=== PATIENT | male | born 1960 | race African-American/Black ===

== ENCOUNTER 2022-04-21 22:33 | Emergency (ER) | payer OTHER ==
--- OUTSIDE RECORDS SUMMARY | 2022-04-21 22:37 | XMS REPORT | Continuity of Care Document ---
:1960 Author Organization [facility] t Address [address] [place] [address] Care Team Providers Name Role Phone MILAGRO RAO Primary Care Physician Unavailable MILAGRO RAO Attending Clinician Unavailable Fidel BUI, Meche Attending Clinician Milagro Rao MD Attending Clinician Payers Payer Name Policy Type Policy Number Effective Date Expiration Date S ource Problems Condition Condition Condition Status Onset Resolution Last Treating Co mments Source Name Details Category Date Date Treatment Clinician Date Chronic Chronic Disease Active Univers hepatitis hepatitis 4-29 [place] hepatic hepatic 00 Medical coma coma Branch Dyslipidem Dyslipidem Disease Active U nivantionette ia ia 1-12 ity of 00:00: [place] 00 Medical Branch Type 2 Type 2 Disease Active Univers diabetes diabetes 1-12 ity of mellitus mellitus 00:00: [place] without without 00 Medical complicati complicati Br anch on, on, without without long-term long-term current current use of use of insulin insulin Asymptomat Asymptomat Disease Active U nivers ic ic 1-12 ity of hypertensi hypertensi [place] ve [place] ve urgency 00 Me dical Branch Diabetic Diabetic Disease Active Unive rs eye exam eye exam 1-12 ity of 00:00: [place] 00 Medical Branch Gastroesop Gastroesop Disease Active U nivers hageal hageal 1-12 ity of reflux reflux 00:00: [place] disease disease 00 Medical without without Branch esophagiti esophagiti s s Alcohol Alcohol Disease Active Univers use use 1-12 ity of 00:00: [place] 00 Medical Branch Need for Need for Disease Active Unive rs hepatitis hepatitis 1-12 ity of C C 00:00: [place] screening screening 00 [facility] test test Branch Need for Need for Disease Active Unive rs immunizati immunizati 1-12 [place] of on against [place] against [place] influenza influenza 00 [facility] Branch Nicotine Nicotine Disease Active Unive rs dependence dependence 1-12 it y of with with 00:00: [place] current current 00 Medical use use Branch Chest pain Chest pain Disease Active 2020-07 U nivers 2-09 ity of 00:00: [place] 00 Medical Branch Retinal Retinal Disease Active 2019-07 Univers tear, left tear, left 08-20 it y of 00:00: [place] 00 Medical Branch PVD PVD Disease Active 2019-07 Univers (posterior (posterior 08-20 it y of vitreous vitreous 00:00: [place] detachment detachment 00 Me dical ), left ), left Branch Ocular Ocular Disease Active 2019-07 Univers trauma of trauma of 08-20 [place]y of left eye, left eye, 00:[place] subsequent subsequent 00 Me dical encounter encounter Bran ch Vitreous Vitreous Disease Active 2019-07 Unive rs hemorrhage hemorrhage 1-26 it y of of left of left 00:00: [place] eye eye 00 Medical Branch Vitreous Vitreous Disease Active 2019-07 Unive rs floaters floaters 1-26 ity of of left of left 00:00: [place] eye eye 00 Medical Branch Family hx Family hx Disease Active 2018-07 Overview: Univers of colon of colon 18 Formattin ity of cancer cancer 00:00: g of this [place] 00 note Medical might be Branch different from the original. 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 Added automatic ally from request for surgery [id number] Obesity Obesity Disease Active 2017-07 Univers (BMI (BMI 1-12 ity of 30-39.9) 30-39.9) 00:00: [place] 00 Medical Branch Pancreatic Pancreatic Disease Active 2017-07 Overview : Univers mass mass 1-07 Formattin ity of 00:00: g of this [place] 00 note Medical might be Branch different from the original. Added automatic ally from request for surgery [id number] Mass of Mass of Disease Active 2017-07 Univers pancreas pancreas 0-22 ity of 00:00: [place] 00 Medical Branch Benign Benign Disease Active Univers essential essential 9-24 ity of HTN HTN 00:00: [address] Allergies, Adverse Reactions, Alerts Allergy Allergy Status Severity Reaction(s) Onset Inactive Treating Comm ents Source Name Type Date Date Clinician NO KNOWN Drug Active Univers ALLERGIE Class ity of S [facility] Social History Social Habit Start Date Stop Date Quantity Comments Source Cigarettes smoked 2022-03-09 2022-03-09 Univers ity of current (pack per 00:00:00 00:00:00 ) - Reported Branch Cigarette 2022-03-09 2022-03-09 [place] of pack-years 00:00:00 00:00:00 [facility] Tobacco use and 2022-03-09 2022-03-09 Smokeless Universit y of exposure 00:00:00 00:00:00 tobacco non-user [facility] intake 2022-03-09 2022-03-09 0 /d University of 00:00:00 00:00:00 [facility] Tobacco Comment 2022-03-09 2022-03-09 1 pkg/day for 12 Uni versity of 00:00:00 00:00:00 yrs Quit 6 yrs [facility] History of tobacco 2013-10-14 Cigarette Smoker University of use 00:00:00 [facility] Sex Ass[birth year] At [birth year] Universit y of 00:00:00 00:00:00 [facility] Smoking Status Start Date Stop Date Source Ex-smoker 2022-03-09 00:00:00 2022-03-09 00:00:00 [facility] ty of [place] [facility] Medications Ordered Filled Start Stop Current Ordering Indication Dosage Frequency Signature Comments Components Source Medication Medication Date Date Medication? Clinician (SIG) Name Name SUCRALFATE Yes [id number] TAKE 1 Univers 1 gram 9-15 TABLET BY ity of tablet 00:00: MOUTH IN [place] 00 THE Medical MORNING, Branch ONE TABLET ATE NOON AND ONE TABLET IN THE EVENING metoprolol Yes [id number] 50mg Take 1 Univers tartrate 50 8-15 tablet by ity of mg tablet 00:00: mouth in [facility] 00 the Medical morning Branch and 1 tablet in the evening. metFORMIN Yes [id number] 1000mg Take 1 Univers 1,000 mg 8-15 tablet by ity of tablet 00:00: mouth in [place] 00 the Medical morning Branch and 1 tablet in the evening. Take with meals. lisinopriL- Yes [id number] 1{tbl} Take 1 Univers hydrochloro 8-15 tablet by ity of thiazide 00:00: mouth in [place] 20-25 mg 00 the Medical per tablet morning. [facility] h atorvastati Yes [id number] 40mg Take 1 Univers n 40 mg 8-15 tablet by ity of tablet 00:00: mouth at [place] 00 bedtime. Medical Branch aspirin 81 0 Yes [id number] 81mg Take 1 Univers mg chewable 8-15 tablet by ity of tablet 00:00: mouth in [place] 00 the Medical morning. Branch amLODIPine Yes [id number] 5mg Take 1 Univers 5 mg tablet 8-15 tablet by ity of 00:00: mouth in [place] 00 the Medical morning. Branch pantoprazol Yes [id number] 40mg Take 1 Univers e 40 mg EC 8-15 tablet by ity of tablet 00:00: mouth [place] 00 daily Medical before Branch breakfast. sucralfate Yes [id number] 1g Take 1 Univers 1 gram 8-15 tablet by ity of tablet 00:00: mouth in [place] 00 the Medical morning Branch and 1 tablet at noon and 1 tablet in the evening. metoprolol Yes [id number] 50mg Take 1 Univers tartrate 50 8-15 tablet by ity of mg tablet 00:00: mouth in [facility] 00 the Medical morning Branch and 1 tablet in the evening. metFORMIN 2021-0 Yes [id number] 1000mg Take 1 Univers 1,000 mg 8-15 tablet by ity of tablet 00:00: mouth in [place] 00 the Medical morning Branch and 1 tablet in the evening. Take with meals. lisinopriL- 2021-0 Yes [id number] 1{tbl} Take 1 Univers hydrochloro 8-15 tablet by ity of thiazide 00:00: mouth in [place] 20-25 mg 00 the Medical per tablet morning. [facility] atorvastati 2021-0 Yes [id number] 40mg Take 1 Univers n 40 mg 8-15 tablet by ity of tablet 00:00: mouth at [place] [address] bedtime. [facility] Branch aspirin 81 2021-0 Yes [id number] 81mg Take 1 Univers mg chewable 8-15 tablet by ity of tablet 00:00: mouth in [place] 00 the Medical morning. Branch amLODIPine 0 Yes [id number] 5mg Take 1 Univers 5 mg tablet 8-15 tablet by ity of 00:00: mouth in [place] [address] the Medical morning. Branch pantoprazol 0 Yes [id number] 40mg Take 1 Univers e 40 mg EC 8-15 tablet by ity of tablet 00:00: mouth [place] [address] daily Medical before [place] breakfast. sucralfate 2021-0 Yes [id number] 1g Take 1 Univers 1 gram 8-15 tablet by ity of tablet 00:00: mouth in [place] 00 the Medical morning Branch and 1 tablet at noon and 1 tablet in the evening. metoprolol 2021-0 Yes [id number] 50mg Take 1 Univers tartrate 50 8-15 tablet by ity of mg tablet 00:00: mouth in [facility] 00 the Medical morning Branch and 1 tablet in the evening. metFORMIN 2021-0 Yes [id number] 1000mg Take 1 Univers 1,000 mg 8-15 tablet by ity of tablet 00:00: mouth in [place] [address] the [facility] morning Branch and 1 tablet in the evening. Take with meals. lisinopriL- 2021-0 Yes [id number] 1{tbl} Take 1 Univers hydrochloro 8-15 tablet by ity of thiazide 00:00: mouth in [place] 20-25 mg 00 the Medical per tablet morning. Bran h atorvastati Yes [id number] 40mg Take 1 Univers n 40 mg 8-15 tablet by ity of tablet 00:00: mouth at [place] 00 bedtime. Medical Branch aspirin 81 Yes [id number] 81mg Take 1 Univers mg chewable 8-15 tablet by ity of tablet 00:00: mouth in [place] 00 the Medical morning. Branch amLODIPine Yes [id number] 5mg Take 1 Univers 5 mg tablet 8-15 tablet by ity of 00:00: mouth in [place] 00 the Medical morning. Branch pantoprazol Yes [id number] 40mg Take 1 Univers e 40 mg EC 8-15 tablet by ity of tablet 00:00: mouth [place] 00 daily Medical before Branch breakfast. sucralfate 2021- No [id number] 1g Take 1 Univers 1 gram 8-15 09-15 tablet by ity of tablet 00:00: 00:00 mouth in [place] 00 :00 the Medical morning Branch and 1 tablet at noon and 1 tablet in the evening. metroNIDAZO 2021- Yes [id number] 500mg Take 1 Univers LE (FLAGYL) 8-09 03-23 tablet by it y of 500 mg 00:00: 04:59 mouth [place] tablet 00 :00 every 8 Medical (eight) Branch hours for 7 days. metroNIDAZO 2021- Yes [id number] 500mg Take 1 Univers LE (FLAGYL) 8-15 -23 tablet by it y of 500 mg 00:00: 04:59 mouth [place] tablet 00 :00 every 8 Medical (eight) Branch hours for 7 days. pantoprazol 2021- No [id number] 40mg Take 1 Univers e 40 mg EC - 08-15 tablet by ity of tablet 00:00: 00:00 mouth [place] 00 :00 daily Medical before Branch breakfast. atorvastati 2021- No [id number] 40mg Take 1 Univers n 40 mg -23 03-15 tablet by ity of tablet 00:00: 00:00 mouth at [place] 00 :00 bedtime. Medical Branch metoprolol 2021- No [id number] 50mg Take 1 Univers tartrate 50 11-21-15 tablet by it y of mg tablet 00:00: 00:00 [place] 2 [place] 00 :[place] (two) Medical times Branch daily. lisinopriL- 2021- No [id number] 1{tbl} Take 1 Univers hydrochloro 11-21-15 tablet by it y of thiazide 00:00: 00:00 mouth [place] 20-25 mg 00 :00 daily. Medical per tablet Branch aspirin 81 2021- No [id number] 81mg Take 1 Univers mg chewable 11-21-15 tablet by it y of tablet 00:00: 00:00 mouth [place] 00 :00 daily. Medical Branch amLODIPine 2021- No [id number] 5mg Take 1 Univers 5 mg tablet 11-2115 tablet by it y of 00:00: 00:00 mouth [place] 00 :00 daily. Medical Branch metFORMIN 2021- No [id number] 1000mg Take 1 Univers 1,000 mg 11-2115 tablet by ity o f tablet 00:00: 00:00 mouth 2 [place] 00 :00 (two) Medical times Branch daily with meals. Miscellaneo Yes [id number] [address] 08-06 Dispense ity o f Supply Kit 00:00: blood [place] 00 pressure Medical cuff (any Branch brand), take BP at home BID Miscellaneo Yes [id number] [address] 08-06 Dispense ity o f Supply Kit 00:00: blood [place] 00 pressure Medical cuff (any Branch brand), take BP at home BID Miscellaneo Yes [id number] [address] 08-06 Dispense ity o f Supply Kit 00:00: blood [place] 00 pressure Medical cuff (any Branch brand), take BP at home BID Immunizations Ordered Immunization Filled Date Status Comments Sour ce Name Immunization Name SARS-COV-2 COVID-2021-05-20 Completed Unive rsity of MODERNA VACCINE 00:00:00 [facility] SARS-COV-2 COVID-19 2021-05-20 Completed Unive rsity of MODERNA VACCINE 00:00:00 [facility] SARS-COV-2 COVID-19 2021-05-20 Completed Unive rsity of MODERNA 12+ YRS 00:00:00 [place] Med ical VACCINE Branch SARS-COV-2 COVID-19 2020-09-24 Completed Unive rsity of MODERNA VACCINE 00:00:00 [place] Med ical Branch SARS-COV-2 COVID-19 2020-09-24 Completed Unive rsity of MODERNA VACCINE 00:00:00 [place] Med ical Branch SARS-COV-2 COVID-19 2020-09-24 Completed Unive rsity of MODERNA 12+ YRS 00:00:00 [place] Med ical VACCINE Branch SARS-COV-2 COVID-19 2020-08-27 Completed Unive rsity of MODERNA VACCINE 00:00:00 [place] Med ical Branch SARS-COV-2 COVID-19 2020-08-27 Completed Unive rsity of MODERNA VACCINE 00:00:00 [place] Med ical Branch SARS-COV-2 COVID-19 2020-08-27 Completed Unive rsity of MODERNA 12+ YRS 00:00:00 [place] Med ical VACCINE Branch Pneumococcal 13 2018-08-10 Completed Universit y of Conjugate, PCV13 00:00:00 [facility] dical (Prevnar 13) Branch Meningococcal 2018-08-10 Completed University of Oligosaccharide 00:00:00 [place] Med ical (groups A, C, Y and Branc h W-135) conjugate vaccine (MCV4O) Influenza Virus 2018-08-10 Completed Universit y of Vaccine Quad .5 mL IM 00:00:00 Domin[place] as Medical 6+ MO Branch Heamophilus Influenza 2018-08-10 Completed Uni versity of B 00:00:00 [facility] Branch Pneumococcal 13 2018-08-10 Completed Universit y of Conjugate, PCV13 00:00:00 [facility] dical (Prevnar 13) Branch Meningococcal 2018-08-10 Completed University of Oligosaccharide 00:00:00 [place] Med ical (groups A, C, Y and Branc h W-135) conjugate vaccine (MCV4O) Influenza Virus 2018-08-10 Completed Universit y of Vaccine Quad .5 mL IM 00:00:00 [place] as Medical 6+ MO Branch Heamophilus Influenza 2018-08-10 Completed Uni versity of B 00:00:00 [facility] Branch Pneumococcal 13 2018-08-10 Completed Universit y of Conjugate, PCV13 00:00:00 [facility] dical (Prevnar 13) Branch Meningococcal 2018-08-10 Completed [facility] 00:00:00 [place] Med ical (groups A, C, Y and Branc h W-135) conjugate vaccine (MCV4O) Influenza Virus 2018-08-10 Completed Universit y of Vaccine Quad .5 mL IM 00:00:00 [place] Medical 6+ MO Branch Heamophilus Influenza 2018-08-10 Completed Uni versity of B 00:00:00 [facility] Vital Signs Vital Name Observation Time Observation Value Comments Source Systolic blood 2022-03-09 13:42:00 166 mm[Hg] Univer sity of pressure [facility] Diastolic blood 2022-03-09 13:42:00 106 mm[Hg] [facility] [place] [facility] Heart rate 2022-03-09 13:39:00 73 /min [facility] Body temperature 2022-03-09 13:39:00 36.39 [facility] Respiratory rate 2022-03-09 13:39:00 18 [facility] Body height 2022-03-09 13:39:00 170.2 cm [facility] Body weight 2022-03-09 13:39:00 91.309 kg [facility] BMI 2022-03-09 13:39:00 31.53 kg/m2 [facility] Oxygen saturation in 2022-03-09 13:39:00 98 /min [facility] blood by [facility] Pulse oximetry Branch Procedures Procedure Date / Time Performed Performing Clinician Sour e URINALYSIS, 2022-03-09 15:27:00 Milagro Rao [facility] COMPLETE-Q [facility] Encounters Start End Encounter Admission Attending Care Care Encounter Source Date/Time Date/Time Type Type Clinicians Facility Department ID 2022-05-12 2022-05-12 Outpatient R DARRICK RAO [facility] [id number] Univers 10:40:00 10:40:00 MILAGRO islas [facility] 2022-04-09 2022-04-09 Danica Parra ALJAZLYN [id number] Univers 00:00:00 00:00:00 Meche BRITO [id number] ity of [id number] PROF[place] [id number] Tn dical NAL 044 [facility] 2022-03-09 2022-03-09 Office DARRICK Parra [id number] Univers 08:30:00 09:09:19 Visit Meche BRITO [id number] ity of [id number] PROF[place] [id number] Tn dical NAL 044 [facility] 2022-03-09 2022-03-09 Orders JOSE MARTIN Rao [id number] Univers 00:00:00 00:00:00 Only Milagro RIGGINS [id number] it y of [facility] [id number] Dominik as [phone] [address] Results Test Description Test Time Test Comments Results Result Comments Source URINALYSIS, COMPLETE-Q 2022-03-10 04:00:00 Test Item Value Reference Range Interpretation Comme nts COLOR-Q (test code = DARK YELLOW YELLOW 5778-6) APPEARANCE-Q (test CLOUDY CLEAR code = 5767-9) SPECIFIC GRAVITY-Q 1.001-1.03 (test code = 5811-5) PH-Q (test code = 5-8 5803-2) GLUCOSE-Q (test code = NEGATIVE NEGATIVE 93796-6) BILIRUBIN-Q (test code NEGATIVE NEGATIVE = 5770-3) KETONES-Q (test code = NEGATIVE NEGATIVE 2514-8) OCCULT BLOOD-Q (test NEGATIVE NEGATIVE code = 5794-3) PROTEIN-Q (test code = 1+ NEGATIVE 62198-1) NITRITE-Q (test code = NEGATIVE NEGATIVE 5802-4) LEUKOCYTE ESTERASE-Q NEGATIVE NEGATIVE (test code = 5799-2) WBC-Q (test code = NONE SEEN See_Comment [Automat ed message] 5821-4) The system [employer] generated this result transmitted ref erence range: < OR = 5 /HPF. The reference r nino was not used to int erpret this result as normal/abnormal . RBC-Q (test code = 0-2 See_Comment [Automat ed message] 66464-2) The system whic h generated this result transmitted ref erence range: < OR = 2 /HPF. The reference r nino was not used to int erpret this result as normal/abnormal . SQUAMOUS EPITHELIAL NONE SEEN See_Comment [Automa belen message] CELLS-Q (test code = The sys tem which 17079-2) generated this result transmitted ref erence range: < OR = 5 /HPF. The reference r nino was not used to int erpret this result as normal/abnormal . BACTERIA-Q (test code NONE SEEN NONE SEEN /HPF = 5769-5) HYALINE CAST-Q (test NONE SEEN NONE SEEN /LPF code = 5796-8) -Q (test code = See Below This urine w as analyzed 8251-1) for the presenc e of WBC, RBC, bacte lewis, casts, and othe r formed elements. Only those elements seen w ere reported. ERIC (test code = ERIC) PERFORMED BY [employer]; [address] [place] [address]; MALENA HANSON MD [facility]
[2022-04-21] MEDS ORDERED: HYDROMORPHONE HCL 1 MG/ML INJ ONE (23:54)
[2022-04-21] MEDS ORDERED: ONDANSETRON 4 MG/2 ML VIAL ONE (23:54)
[2022-04-22 00:52] LABS: Hematocrit 44.1 % (39.6-49.0); Lymphocytes % 24.8 % (15.3-44.8); MCV 84.9 fL (80-100); MPV 9.1 fL (7.6-11.3)
[2022-04-22 00:58] LABS: Albumin 3.6 g/dL (3.4-5.0); Bilirubin Total 0.5 mg/dL (0.2-1.0); Potassium 3.8 mmol/L (3.5-5.1); Protein, Total 7.8 g/dL (6.4-8.2)
--- NOTE | 2022-04-22 02:06 | EDPHYS ---
Physician Documentation [facility] Name: Art Koroma Age: 61 yrs Sex: Male : 1960 Arrival Date: 04/21/2022 Time: 22:36 Bed 2 Private MD: ED Physician Boy Dickinson HPI: 04/21 23:35 This 61 yrs old Black Male presents to ER via Ambulatory with complaints of Headache, sp3 Neck Pain, >24Hrs Old, Blurred Vision. 23:35 61-year-old male with a history of hypertension, diabetes, hepatitis C, pancreatic sp3 cancer status post surgery with no chemotherapy or active treatment, presents with chief complaint headache for 2 weeks off-and-on with the last episode lasting approximately 24 to 36 hours. Patient has had a past head injury which is caused headaches for the last several years. He is not on any chronic pain medications or blood thinners. He denies reinjury of any type. Review of systems is negative for neck pain or stiffness, chest pain, shortness of breath, pain, abdominal pain, nausea, vomiting, rash, known sick contacts, travel, any other symptoms at this time. Pain is described as dull and throbbing posterior nature. No syncope or near syncope reported.. Historical: - Allergies: 22:50 No Known Allergies; hb - PMHx: 22:50 Hypertensive disorder; Diabetes mellitus; Pancreatic CA; hb - PSHx: 22:50 Pancreatic CA tumor removal; hb - Immunization history:: Adult Immunizations up to date. - Social history:: Smoking status: Patient reports the use of cigarette tobacco products, denies chronic smoking, but will smoke occasionally. ROS: 23:37 Constitutional: Negative for fever, chills, and weight loss, Eyes: Negative for injury, sp3 pain, redness, and discharge, Cardiovascular: Negative for chest pain, palpitations, and edema, Respiratory: Negative for shortness of breath, cough, wheezing, and pleuritic chest pain, Abdomen/GI: Negative for abdominal pain, nausea, vomiting, diarrhea, and constipation, Back: Negative for injury and pain, MS/Extremity: Negative for injury and deformity, Skin: Negative for injury, rash, and discoloration, Psych: Negative for depression, anxiety, suicide ideation, homicidal ideation, and hallucinations, Allergy/Immunology: Negative for hives, rash, and allergies, Endocrine: Negative for neck swelling, polydipsia, polyuria, polyphagia, and marked weight changes, Hematologic/Lymphatic: Negative for swollen nodes, abnormal bleeding, and unusual bruising. 23:37 All other systems are negative. Exam: 23:37 Constitutional: This is a well developed, well nourished patient who is awake, alert, sp3 and in no acute distress. Head/Face: Normocephalic, atraumatic. ENT: Nares patent. No nasal discharge, no septal abnormalities noted. External auditory canals are clear. Oropharynx with no redness, swelling, or masses, exudates, or evidence of obstruction, uvula midline. Mucous membranes moist. Neck: Trachea midline, no thyromegaly or masses palpated, and no cervical lymphadenopathy. Supple, full range of motion without nuchal rigidity, or vertebral point tenderness. No Meningismus. Chest/axilla: Normal chest wall appearance and motion. Nontender with no deformity. No lesions are appreciated. Cardiovascular: Regular rate and rhythm with a normal S1 and S2. No gallops, murmurs, or rubs. Normal PMI, no JVD. No pulse deficits. Respiratory: Lungs have equal breath sounds bilaterally, clear to auscultation and percussion. No rales, rhonchi or wheezes noted. No increased work of breathing, no retractions or nasal flaring. Abdomen/GI: Soft, non-tender, with normal bowel sounds. No distension or tympany. No guarding or rebound. No evidence of tenderness throughout. Back: No spinal tenderness. No costovertebral tenderness. Full range of motion. Skin: Warm, dry with normal turgor. Normal color with no rashes, no lesions, and no evidence of cellulitis. MS/ Extremity: Pulses equal, no cyanosis. Neurovascular intact. Full, normal range of motion. Neuro: Awake and alert, GCS 15, oriented to person, place, time, and situation. Cranial nerves II-XII grossly intact. Motor strength 5/5 in all extremities. Sensory grossly intact. Cerebellar exam normal. Normal gait. Psych: Awake, alert, with orientation to person, place and time. Behavior, mood, and affect are within normal limits. 23:37 Eyes: Mild photophobia noted.. Vital Signs: 22:48 BP 168 / 83; Pulse 82; Resp 16; Temp 98.3; Pulse Ox 100% on R/A; Weight 93.44 kg; hb Height 5 ft. 7 in. (170.18 cm); Pain 05/04; 04/22 01:11 BP 135 / 85; Pulse 56; Resp 15; Pulse Ox 98% on R/A; vc1 04/21 22:48 Body Mass Index 32.26 (93.44 kg, 170.18 cm) hb MDM: 04/21 23:28 Patient medically screened. sp3 23:39 Data reviewed: vital signs, nurses notes. ED course: CT scan of the head, laboratory sp3 values and pain medication have been ordered. Differential diagnosis includes acute on chronic headache, intracranial pathology, tension headache, migraine headache. I do not believe patient has meningitis or any infectious etiology.. 04/22 02:04 ED course: Pt feeling better -- MENDOZA fully resolved; CT and labs WNL -- DC home. . sp3 04/21 23:35 Order name: CBC with Diff; Complete Time: 00:56 sp3 04/21 23:35 Order name: CMP; Complete Time: 02:00 sp3 04/21 23:28 Order name: CT Head Brain wo Cont sp3 04/21 23:35 Order name: Lipase; Complete Time: 02:00 sp3 04/21 23:35 Order name: IV Saline Lock; Complete Time: 00:11 sp3 04/21 23:35 Order name: Labs collected and sent; Complete Time: 00:11 sp3 Administered Medications: 00:11 Drug: Dilaudid (HYDROmorphone) 1 mg Route: IVP; Site: right antecubital; vc1 01:08 Follow up: Response: No adverse reaction; Marked relief of symptoms vc1 01:09 Follow up: Response: No adverse reaction; Marked relief of symptoms; Pain is decreased; vc1 RASS: Drowsy (-1) 00:12 Drug: Zofran (Ondansetron) 4 mg Route: IVP; Site: right antecubital; vc1 01:08 Follow up: Response: No adverse reaction; Marked relief of symptoms vc1 Disposition Summary: 04/22/22 02:05 Discharge Ordered Location: Home sp3 Condition: Stable sp3 Diagnosis - Headache sp3 Followup: sp3 - With: Private Physician - When: Upon discharge from the Emergency Department - Reason: Continuance of care Discharge Instructions: - Discharge Summary Sheet sp3 - General Headache Without Cause sp3 Forms: - Medication Reconciliation Form sp3 - Thank You Letter sp3 - Antibiotic Education sp3 - Prescription Opioid Use sp3 Signatures: Dispatcher [employer] Rika Rai, RN RN Boy Cunningham MD MD sp3 Farhana Dumas RN RN vc1
--- NOTE | 2022-04-22 02:06 | ER ---
Nurse's Notes [facility] Name: Art Koroma Age: 61 yrs Sex: Male : 1960 Arrival Date: 04/21/2022 Time: 22:36 Bed 2 Private MD: Diagnosis: Headache Presentation: 04/21 22:48 Chief complaint: Severe headache, nausea, blurred vision, photophobia, and dizziness x hb 2 days. Reports hx of headaches following head injury 7 years ago, this headache feels similar but lasting longer than usual. Coronavirus screen: Client presents with at least one sign or symptom that may indicate coronavirus-19. Standard/surgical mask placed on the client. Provider contacted for isolation considerations. Ebola Screen: No symptoms or risks identified at this time. Risk Assessment: Do you want to hurt yourself or someone else? Patient reports no desire to harm self or others. Onset of symptoms was April 20, 2022. 22:48 Method Of Arrival: Ambulatory hb 22:48 Acuity: TRACIE 3 hb 04/22 01:09 Initial Sepsis Screen: Does the patient meet any 2 criteria? No. Patient's initial vc1 sepsis screen is negative. Does the patient have a suspected source of infection? No. Patient's initial sepsis screen is negative. Triage Assessment: 04/21 22:50 Headache History: The patient has had previous headaches and this one is similar to hb previous episodes, and this one is more severe than previous episodes. General: Appears in no apparent distress. uncomfortable, Behavior is calm, cooperative. Pain: Pain currently is 10 out of 10 on a pain scale. Neuro: Level of Consciousness is awake, alert, obeys commands, Oriented to person, place, time, situation. Cardiovascular: Patient's skin is warm and dry. Respiratory: Respiratory effort is even, unlabored, Respiratory pattern is regular, symmetrical. Historical: - Allergies: 22:50 No Known Allergies; hb - PMHx: 22:50 Hypertensive disorder; Diabetes mellitus; Pancreatic CA; hb - PSHx: 22:50 Pancreatic CA tumor removal; hb - Immunization history:: Adult Immunizations up to date. - Social history:: Smoking status: Patient reports the use of cigarette tobacco products, denies chronic smoking, but will smoke occasionally. Screenin:53 Abuse screen: Denies threats or abuse. Denies injuries from another. Nutritional hb screening: No deficits noted. Tuberculosis screening: No symptoms or risk factors identified. Fall Risk None identified. Vital Signs: 22:48 BP 168 / 83; Pulse 82; Resp 16; Temp 98.3; Pulse Ox 100% on R/A; Weight 93.44 kg; hb Height 5 ft. 7 in. (170.18 cm); Pain 10/10; 04/22 01:11 BP 135 / 85; Pulse 56; Resp 15; Pulse Ox 98% on R/A; vc1 04/21 22:48 Body Mass Index 32.26 (93.44 kg, 170.18 cm) hb ED Course: 04/21 22:36 Patient arrived in ED. bp1 22:50 Triage completed. hb 22:52 Arm band placed on. hb 22:53 Patient has correct armband on for positive identification. hb 22:59 Boy Dickinson MD is Attending Physician. sp3 23:51 Farhana Dumas, SHAI is Primary Nurse. vc1 04/22 00:37 CT Head Brain wo Cont In Process Unspecified. EDMS 02:26 No provider procedures requiring assistance completed. IV discontinued, intact, vc1 bleeding controlled, No redness/swelling at site. Pressure dressing applied. Administered Medications: 00:11 Drug: Dilaudid (HYDROmorphone) 1 mg Route: IVP; Site: right antecubital; vc1 01:08 Follow up: Response: No adverse reaction; Marked relief of symptoms vc1 01:09 Follow up: Response: No adverse reaction; Marked relief of symptoms; Pain is decreased; vc1 RASS: Drowsy (-1) 00:12 Drug: Zofran (Ondansetron) 4 mg Route: IVP; Site: right antecubital; vc1 01:08 Follow up: Response: No adverse reaction; Marked relief of symptoms vc1 Medication: 04/21 22:53 VIS not applicable for this client. hb Outcome: 04/22 02:05 Discharge ordered by . sp3 02:26 Discharged to home ambulatory, with friend. vc1 02:26 Condition: good 02:26 Discharge instructions given to patient, Instructed on discharge instructions, follow up and referral plans. medication usage, Demonstrated understanding of instructions, follow-up care. 02:27 Patient left the ED. vc1 Signatures: Dispatcher [employer] EDMS Rika Verdin, RN RN hb Sirisha Marc Setul, MD MD sp3 Farhana Dumas RN RN vc1
--- NOTE | 2022-04-22 18:05 | RAD REPORT ---
EXAM DESCRIPTION: Noncontrast CT through the head. CLINICAL HISTORY: Headache, sudden, severe. TECHNIQUE: Noncontrast CT through the head was performed. Axial, coronal, and sagittal reconstructio ns were created and sent to PACS. This exam was performed according to our departmental dose-optimiza tion program which includes use of Automated Exposure Control, adjustment of the mA and/or kV accordi ng to patient size and/or use of iterative reconstruction technique. COMPARISON: None. FINDINGS: Small chronic right basal ganglia lacunar infarct. There is no intra-axial or extra-axial bleed seen. There is no mass or mass effect. The ventricles are unremarkable. The orbital contents ap pear unremarkable. The visualized paranasal sinuses and mastoid air cells are patent. No acute fracture is identified. IMPRESSION: No acute intracranial abnormality identified. Electronically signed by: Vianney Salcido MD 04/22/2022 12:38 AM CDT Due to temporary technical issues with the PACS/Fluency reporting system, reports are being signed by the in house radiologists without review as a courtesy to insure prompt reporting. The interpreting radiologist is fully responsible for the content of the report.
[2022-04-24 03:53] VITALS: TEMP 98.3
[2022-04-24 03:54] VITALS: BP 135/85; O2SAT 98
== END 2022-04-22 02:27 | disposition home or self-care (01) ==
LOC: ER 22:33
DX: R51.9 Headache, unspecified (principal); I10 Essential (primary) hypertension; F17.210 Nicotine dependence, cigarettes, uncomplicated
CPT/HCPCS: 85025; 36415; 83690; 80053; 70450; 96375; 96374; 99283; J1170; J2405